=== PATIENT | male | born 1950 | race Caucasian/White ===

== ENCOUNTER 2018-09-18 21:13 | Emergency (ER) | payer MEDICARE, OTHER ==
[2018-09-18] MEDS ORDERED: Sodium Chloride 0.9% 1000 ML 1,000 ML IV STA (21:41)
[2018-09-18] MEDS ORDERED: Nitrostat 0.4 MG (ED) SL ONE ×2 (21:41→21:50)
[2018-09-18] MEDS ORDERED: Sodium Chloride 0.9% 1000 ML 1,000 ML ONE (21:50)
[2018-09-18 22:12] LABS: BASOPHIL % 0.6 % (0.0-0.4); Basophil (Absolute #) 0.04 (0-0.4); Eosinophil % 1.9 % (0.00-5.0); Eosinophil (Absolute #) 0.12 (0-0.5); Granulocyte Absolute (ANC) 4.21 (1.4-6.9); Granulocytes % 66.6 % (36.0-66.0); Hematocrit 45.8 % (42-50); Hemoglobin 15.3 gm/dl (12.5-18.0); Lymphocyte (Absolute #) 1.35 (1.0-4.6); Lymphocytes % 21.3 % (24.0-44.0); Mean Cell Volume 98.3 fl (78-100); Mean Corpuscular Hemoglobin 32.8 pg (26-32); Mean Corpuscular Hgb Concent. 33.4 g/dl (32-36); Mean Platelet Volume 10.2 fl (6-9.5); Monocyte (Absolute #) 0.61 (0.0-1.3); Monocytes % 9.6 % (0.0-12.0); Platelet Count 249 K/mm3 (150-450); Red Blood Count 4.66 M/mm3 (4.1-5.6); White Blood Count 6.3 K/mm3 (4.0-10.5)
[2018-09-18 22:28] LABS: ALBUMIN 4.1 g/dL (3.5-5.0); ALKALINE PHOSPHATASE 93 U/L (38-126); ANION GAP 12.8 MEQ/L (5-15); BLOOD UREA NITROGEN 17 mg/dL (9-20); CHLORIDE 103 mmol/L (98-107); CK-Creatinine Phosphokinase 39 U/L (55-170); Calcium 9.5 mg/dL (8.4-10.2); Carbon Dioxide 30 mmol/L (22-30); Creatinine 1 1.06 mg/dL (0.66-1.25); Glucose 113 mg/dL (74-106); Potassium 4.2 mmol/L (3.5-5.1); SGOT/AST 27 U/L (17-59); SGPT/ALT 24 U/L (0-50); SODIUM 141 mmol/L (137-145); Total Protein 6.8 g/dL (6.3-8.2)
[2018-09-18 22:31] VITALS: O2SAT 99
--- NOTE | 2018-09-19 00:33 | ERPHSYRPT ---
- History of Present Illness Historian: patient Exam Limitations: no limitations Patient Subjective Stated Complaint: patietn states he just isnt feeling right, weakness on left side, off and on and just doesnt feel like something right worried might be his heart Triage Nursing Assessment: pt alert nad [id number], able to ambulate by self, gait is steady, pulses equal bialteral radius, lung sounds clear, patietn face is flushed , skin otherwise warm and dry, no abnormalities seen, no edema noted , no previous cardiac history. Physician History: Pt is a pleasant 67 y/o male. He has no medical history and is just taking MTV daily. Pt states that today "i didn't feel right". He could not describe his feeling and states, that he felt a little weak on the left chest and arm, and decided to come and be seen in the ER. Timing/Duration: today Activities at Onset: none Quality: other (weakness, and tightness) Chest Pain Radiation: arm Severity of Pain-Max: mild Severity of Pain-Current: mild Modifying Factors: Improves With: nothing Aspirin Treatment Today: no aspirin today Allergies/Adverse Reactions: No Known Drug Allergies Allergy (Unverified 10/30/15 09:46) Home Medications: Multivitamin [Multivitamins] 1 each PO DAILY 10/30/15 [History] Hx Tetanus, Diphtheria Vaccination/Date Given: Yes Hx Influenza Vaccination/Date Given: No Hx Pneumococcal Vaccination/Date Given: No Immunizations Up to Date: Yes - Review of Systems Constitutional: Weakness Eyes: No Symptoms Ears, Nose, & Throat: No Symptoms Respiratory: No Cough, No Dyspnea Cardiac: No Chest Pain, No Edema, No Syncope Abdominal/Gastrointestinal: No Abdominal Pain, No Nausea, No Vomiting, No Diarrhea Genitourinary Symptoms: No Dysuria Musculoskeletal: No Back Pain, No Neck Pain Skin: No Rash Neurological: No Dizziness, No Focal Weakness, No Sensory Changes Psychological: No Symptoms Endocrine: No Symptoms All Other Systems: Reviewed and Negative - Past Medical History Pertinent Past Medical History: Yes Neurological History: No Pertinent History ENT History: No Pertinent History Cardiac History: No Pertinent History Respiratory History: No Pertinent History Endocrine Medical History: No Pertinent History Musculoskeletal History: No Pertinent History GI Medical History: Other Psycho-Social History: No Pertinent History Male Reproductive Disorders: No Pertinent History Other Medical History: intermittant abd pain - Past Surgical History Past Surgical History: Yes Neuro Surgical History: No Pertinent History Cardiac: No Pertinent History Respiratory: No Pertinent History Gastrointestinal: Appendectomy, Cholecystectomy, Hernia Repair Genitourinary: No Pertinent History Musculoskeletal: No Pertinent History Male Surgical History: No Pertinent History Other Surgical History: tonsils - Social History Smoking Status: Never smoker Exposure to second hand smoke: No Drug Use: none Patient Lives Alone: Yes - Nursing Vital Signs Nursing Vital Signs: Initial Vital Signs Temperature 98.6 F 09/18/18 21:15 Pulse Rate 82 09/18/18 21:15 Respiratory Rate 24 09/18/18 21:15 Blood Pressure 153/78 09/18/18 21:15 O2 Sat by Pulse Oximetry 99 09/18/18 21:15 Pain Scale Pain Intensity 0 - Physical Exam General Appearance: mild distress Eye Exam: PERRL/EOMI, eyes nml inspection Ears, Nose, Throat Exam: normal ENT inspection, moist mucous membranes Neck Exam: normal inspection, non-tender, supple, full range of motion Respiratory Exam: normal breath sounds, lungs clear, No respiratory distress Cardiovascular Exam: regular rate/rhythm, normal heart sounds Gastrointestinal/Abdomen Exam: soft, No tenderness, No mass Back Exam: normal inspection, No CVA tenderness, No vertebral tenderness Extremity Exam: normal inspection, normal range of motion Neurologic Exam: alert, oriented x 3, cooperative, normal mood/affect, sensation nml, No motor deficits Skin Exam: normal color, warm, dry SpO2: 99 Oxygen Delivery: Room Air - Course EKG Interpreted by Me: RATE, Sinus Rhythm, NORMAL QRS Ordered Tests: Active Orders 24 hr Category Date Time Status Application Integration Specialist STAT Care 09/18/18 21:41 Active EKG-ER Only STAT Care 09/18/18 21:41 Active IV Insertion STAT Care 09/18/18 21:41 Active Oxygen-ED Only NASAL CANNULA 2 lpm Care 09/18/18 21:41 Active Pulse Oximetry (ED) STAT Care 09/18/18 21:41 Active HEAD WITHOUT CONTRAST [CT] Stat Exams 09/18/18 21:39 Taken CBC W DIFF Stat Lab 09/18/18 22:00 Completed CK-Creatinine Phosphokinase Stat Lab 09/18/18 22:00 Completed CMP Stat Lab 09/18/18 22:00 Completed TROPONIN Q3H Lab 09/18/18 22:00 Completed TROPONIN Q3H Lab 09/19/18 00:45 Ordered TROPONIN Q3H Lab 09/19/18 03:45 Ordered TROPONIN Q3H Lab 09/19/18 06:45 Ordered TROPONIN Q3H Lab 09/19/18 09:45 Ordered Urine Triage Profile Stat Lab 09/18/18 21:41 Uncollected Medication Summary Discontinued Medications Generic Name Dose Route Start Last Admin Trade Name Freq PRN Reason Stop Dose Admin Sodium Chloride 1,000 mls @ 999 mls/hr 09/18/18 21:41 09/18/18 21:53 Sodium Chloride 0.9% 1000 Ml IV 09/18/18 22:41 999 mls/hr .Q1H1M STA Administration Sodium Chloride Confirm 09/18/18 21:50 Sodium Chloride 0.9% 1000 Ml Administered 09/18/18 21:51 Dose 1,000 mls @ ud .ROUTE .STK-MED ONE Nitroglycerin 0.4 mg 09/18/18 21:41 09/18/18 21:52 Nitrostat 0.4 Mg (Ed) SL 09/18/18 21:42 0.4 mg STAT ONE Administration Nitroglycerin Confirm 09/18/18 21:50 Nitrostat 0.4 Mg (Ed) Administered 09/18/18 21:51 Dose 0.4 mg SL .STK-MED ONE Lab/Rad Data: Laboratory Result Diagrams 09/18/18 22:00 09/18/18 22:00 Laboratory Results 09/18/18 09/18/18 09/18/18 Range/Units 22:00 22:00 22:00 WBC 6.3 (4.0-10.5) K/mm3 RBC 4.66 (4.1-5.6) M/mm3 Hgb 15.3 (12.5-18.0) gm/dl Hct 45.8 (42-50) % MCV 98.3 (78-100) fl MCH 32.8 H (26-32) pg MCHC 33.4 (32-36) g/dl RDW 13.0 (11.5-14.0) % Plt Count 249 (150-450) K/mm3 MPV 10.2 H (6-9.5) fl Gran % 66.6 H (36.0-66.0) % Eos # (Auto) 0.12 (0-0.5) Absolute Lymphs (auto) 1.35 (1.0-4.6) Absolute Monos (auto) 0.61 (0.0-1.3) Lymphocytes % 21.3 L (24.0-44.0) % Monocytes % 9.6 (0.0-12.0) % Eosinophils % 1.9 (0.00-5.0) % Basophils % 0.6 (0.0-0.4) % Absolute Granulocytes 4.21 (1.4-6.9) Basophils # 0.04 (0-0.4) Sodium 141 (137-145) mmol/L Potassium 4.2 (3.5-5.1) mmol/L Chloride 103 (98-107) mmol/L Carbon Dioxide 30 (22-30) mmol/L Anion Gap 12.8 (5-15) MEQ/L BUN 17 (9-20) mg/dL Creatinine 1.06 (0.66-1.25) mg/dL Estimated GFR > 60.0 ML/MIN Glucose 113 H (74-106) mg/dL Calcium 9.5 (8.4-10.2) mg/dL Total Bilirubin 0.30 (0.2-1.3) mg/dL AST 27 (17-59) U/L ALT 24 (0-50) U/L Alkaline Phosphatase 93 (38-126) U/L Creatine Kinase 39 L (55-170) U/L Troponin I < 0.012 (0.000-0.034) ng/mL Serum Total Protein 6.8 (6.3-8.2) g/dL Albumin 4.1 (3.5-5.0) g/dL - Progress Progress: improved Air Movement: good Progress Note: 09/19/18 00:34 All work up was done, and was negative. Pt is feeling well and denies any discomfort or weakness anymore. Blood Culture(s) Obtained: No Antibiotics given: No Will see patient in: office Counseled pt/family regarding: need for follow-up - Departure Time of Disposition: 00:35 Departure Disposition: Home Clinical Impression: Chest discomfort Condition: Stable Critical Care Time: No Referrals: DRAKE ROMAN [Primary Care Provider] - Additional Instructions: Follow up with PCP in a week, or as needed.
[2018-09-19 00:54] VITALS: BP 121/74; PULSE 75
--- NOTE | 2018-09-19 08:49 | XRAY ---
Indication: Left-sided weakness.. Multiple contiguous axial images obtained through the head without contrast. Comparison: None. Normal appearing brain parenchyma, ventricles, and bony calvarium. Visualized paranasal sinuses and mastoid air cells are clear. Impression: Normal CT head without contrast exam.. Comment: Preliminary interpretation was made by [facility]. No critical discrepancy. CT DI 70.10
== END 2018-09-19 00:55 | disposition home or self-care (01) ==
LOC: ED 21:13
DX: R07.89 Other chest pain (principal); R53.1 Weakness
CPT/HCPCS: 36000; 36415; 70450; 80053; 82550; 84484; 85025; 93005; 93041; 96360; 99284; A9270-GY

== ENCOUNTER 2020-09-23 17:45 | Emergency (ER) | payer MEDICARE, OTHER ==
[2020-09-23] MEDS ORDERED: BABY ASPIRIN 81 MG CHEW PO ONE (18:12)
[2020-09-23] MEDS ORDERED: BABY ASPIRIN 81 MG CHEW ONE (18:23)
[2020-09-23 18:32] LABS: Absolute Neutrophil Ct (ANC) 3.42 (1.4-6.9); BASOPHIL % 0.8 % (0.0-0.4); Basophil (Absolute #) 0.04 (0-0.4); Eosinophil % 0.8 % (0.00-5.0); Eosinophil (Absolute #) 0.04 (0-0.5); Hematocrit 44.2 % (42-50); Hemoglobin 14.5 gm/dl (12.5-18.0); Lymphocytes % 23.2 % (24.0-44.0); Mean Cell Volume 98.9 fl (78-100); Mean Corpuscular Hemoglobin 32.4 pg (26-32); Mean Corpuscular Hgb Concent. 32.8 g/dl (32-36); Mean Platelet Volume 9.9 fl (7.5-11.0); Monocyte (Absolute #) 0.47 (0.0-1.3); Monocytes % 9.1 % (0.0-12.0); Neutrophil % 66.1 % (36.0-66.0); Platelet Count 243 K/mm3 (150-450); Red Blood Count 4.47 M/mm3 (4.1-5.6); Red Cell Distribution Width 12.7 % (11.5-14.0); White Blood Count 5.2 K/mm3 (4.0-10.5)
--- NOTE | 2020-09-23 18:35 | ERPHSYRPT ---
- History of Present Illness Time Seen by Provider: 09/23/20 17:48 Historian: patient Exam Limitations: no limitations Patient Subjective Stated Complaint: cough and chest discomfort while coughing Triage Nursing Assessment: pt to ED c/o cough x couple days and chest discomfort while coughing. rates pain 3/10 at max and 0/10 at rest. pt denies cardiac hx. denies known COVID exposure. pt is afebrile on arrival and no SOB or constant CP reported. heart and lungs clear. Physician History: 70 years old fairly healthy male presented in the ER with 2 days history of off and on dry cough morning every time he coughs at this dull aching pain in the center of the chest which last for few seconds and improved. No chest pain otherwise. Denies any shortness of breath or palpitations. Denies any sick contact. No fever or chills reported. Timing/Duration: day(s) (2), gradual onset, worse Activities at Onset: other Quality: dullness Location: central Chest Pain Radiation: no radiation Severity of Pain-Max: mild Severity of Pain-Current: none Modifying Factors: Worsens With: coughing Associated Symptoms: denies symptoms Prior Chest Pain/Cardiac Workup: no prior chest pain Nitro Today/Relief: no nitro taken today Aspirin Treatment Today: no aspirin today Allergies/Adverse Reactions: oxytetracycline [From Terramycin] Allergy (Unknown, Verified 09/23/20 18:03) pt was a child Home Medications: Multivitamin [Multivitamins] 1 each PO DAILY 10/30/15 [History] Hx Tetanus, Diphtheria Vaccination/Date Given: No Hx Influenza Vaccination/Date Given: No Hx Pneumococcal Vaccination/Date Given: No Immunizations Up to Date: No Travel Risk - International Travel Have you traveled outside of the country in past 3 weeks: No - Coronavirus Screening Are you exhibiting any of the following symptoms?: Yes Symptoms: Cough: New Onset Close contact with a COVID-19 positive Pt in past 14-21 Days: No - Review of Systems Constitutional: No Symptoms Eyes: No Symptoms Ears, Nose, & Throat: No Symptoms Respiratory: Cough Cardiac: Chest Pain Abdominal/Gastrointestinal: No Symptoms Genitourinary Symptoms: No Symptoms Musculoskeletal: No Symptoms Skin: No Symptoms Neurological: No Symptoms Psychological: No Symptoms Endocrine: No Symptoms - Past Medical History Pertinent Past Medical History: Yes Neurological History: No Pertinent History ENT History: No Pertinent History Cardiac History: No Pertinent History Respiratory History: No Pertinent History Endocrine Medical History: No Pertinent History Musculoskeletal History: No Pertinent History GI Medical History: Other Psycho-Social History: No Pertinent History Male Reproductive Disorders: No Pertinent History Other Medical History: intermittent abd pain - Past Surgical History Past Surgical History: Yes Neuro Surgical History: No Pertinent History Cardiac: No Pertinent History Respiratory: No Pertinent History Gastrointestinal: Appendectomy, Cholecystectomy, Hernia Repair Genitourinary: No Pertinent History Musculoskeletal: No Pertinent History Male Surgical History: No Pertinent History Other Surgical History: tonsils - Social History Smoking Status: Never smoker Exposure to second hand smoke: No Drug Use: none Patient Lives Alone: Yes - Nursing Vital Signs Nursing Vital Signs: Initial Vital Signs Temperature 97.0 F 09/23/20 17:55 Pulse Rate 65 09/23/20 17:55 Respiratory Rate 18 09/23/20 17:55 Blood Pressure 161/87 09/23/20 17:55 O2 Sat by Pulse Oximetry 95 09/23/20 17:55 Pain Scale Pain Intensity 0 - Physical Exam General Appearance: no apparent distress, alert Eye Exam: PERRL/EOMI, eyes nml inspection Ears, Nose, Throat Exam: normal ENT inspection, pharynx normal Neck Exam: normal inspection, non-tender, supple, full range of motion Respiratory Exam: normal breath sounds, lungs clear Cardiovascular Exam: regular rate/rhythm, normal heart sounds Gastrointestinal/Abdomen Exam: soft, normal bowel sounds Back Exam: normal inspection, normal range of motion Extremity Exam: normal inspection, normal range of motion Neurologic Exam: alert, oriented x 3, cooperative Skin Exam: normal color SpO2 Interpretation: normal SpO2: 99 O2 Delivery: Room Air - Course EKG Interpreted by Me: RATE (80), Sinus Rhythm, NORMAL AXIS, NORMAL INTERVALS, Q-wave (inferior), Other (Early repolarization) Ordered Tests: Active Orders 24 hr Category Date Time Status Broadcast Operations Engineer STAT Care 09/23/20 18:13 Active EKG-ER Only STAT Care 09/23/20 18:12 Active IV Insertion STAT Care 09/23/20 18:12 Active CHEST 1 VIEW (PORTABLE) Stat Exams 09/23/20 18:13 Taken CBC W DIFF Stat Lab 09/23/20 18:25 Completed CMP Stat Lab 09/23/20 18:25 Completed D-DIMER QUANTITATIVE Stat Lab 09/23/20 18:25 Completed NT PRO BNP Stat Lab 09/23/20 18:25 Completed TROPONIN Q3H Lab 09/23/20 18:25 Completed TROPONIN Q3H Lab 09/23/20 21:26 Received TROPONIN Q3H Lab 09/24/20 00:15 Ordered TROPONIN Q3H Lab 09/24/20 03:15 Ordered TROPONIN Q3H Lab 09/24/20 06:15 Ordered Medication Summary Discontinued Medications Generic Name Dose Route Start Last Admin Trade Name Ayoq PRN Reason Stop Dose Admin Aspirin 324 mg 09/23/20 18:12 09/23/20 18:25 Baby Aspirin 81 Mg Chew PO 09/23/20 18:13 324 mg STAT ONE Administration Aspirin Confirm 09/23/20 18:23 Baby Aspirin 81 Mg Chew Administered 09/23/20 18:24 Dose 324 mg .ROUTE [facility] Lab/Rad Data: Laboratory Result Diagrams 09/23/20 18:25 09/23/20 18:25 Laboratory Results 09/23/20 09/23/20 09/23/20 Range/Units 18:25 18:25 18:25 WBC (4.0-10.5) K/mm3 RBC (4.1-5.6) M/mm3 Hgb (12.5-18.0) gm/dl Hct (42-50) % MCV (78-100) fl MCH (26-32) pg MCHC (32-36) g/dl RDW (11.5-14.0) % Plt Count (150-450) K/mm3 MPV (7.5-11.0) fl Gran % (36.0-66.0) % Eos # (Auto) (0-0.5) Absolute Lymphs (auto) (1.0-4.6) Absolute Monos (auto) (0.0-1.3) Lymphocytes % (24.0-44.0) % Monocytes % (0.0-12.0) % Eosinophils % (0.00-5.0) % Basophils % (0.0-0.4) % Absolute Granulocytes (1.4-6.9) Basophils # (0-0.4) D-Dimer 380 (215-500) ng/mL Sodium 138 (137-145) mmol/L Potassium 4.1 (3.5-5.1) mmol/L Chloride 104 (98-107) mmol/L Carbon Dioxide 29 (22-30) mmol/L Anion Gap 9.4 (5-15) MEQ/L BUN 16 (9-20) mg/dL Creatinine 1.17 (0.66-1.25) mg/dL Estimated GFR > 60.0 ML/MIN Glucose 102 (74-106) mg/dL Calcium 9.3 (8.4-10.2) mg/dL Total Bilirubin 0.20 (0.2-1.3) mg/dL AST 35 (17-59) U/L ALT 29 (0-50) U/L Alkaline Phosphatase 91 (38-126) U/L Troponin I < 0.012 (0.000-0.034) ng/mL NT-Pro-B Natriuret Pep 60.0 (0-900) pg/mL Serum Total Protein 6.2 L (6.3-8.2) g/dL Albumin 3.6 (3.5-5.0) g/dL 09/23/20 Range/Units 18:25 WBC 5.2 (4.0-10.5) K/mm3 RBC 4.47 (4.1-5.6) M/mm3 Hgb 14.5 (12.5-18.0) gm/dl Hct 44.2 (42-50) % MCV 98.9 (78-100) fl MCH 32.4 H (26-32) pg MCHC 32.8 (32-36) g/dl RDW 12.7 (11.5-14.0) % Plt Count 243 (150-450) K/mm3 MPV 9.9 (7.5-11.0) fl Gran % 66.1 H (36.0-66.0) % Eos # (Auto) 0.04 (0-0.5) Absolute Lymphs (auto) 1.20 (1.0-4.6) Absolute Monos (auto) 0.47 (0.0-1.3) Lymphocytes % 23.2 L (24.0-44.0) % Monocytes % 9.1 (0.0-12.0) % Eosinophils % 0.8 (0.00-5.0) % Basophils % 0.8 (0.0-0.4) % Absolute Granulocytes 3.42 (1.4-6.9) Basophils # 0.04 (0-0.4) D-Dimer (215-500) ng/mL Sodium (137-145) mmol/L Potassium (3.5-5.1) mmol/L Chloride (98-107) mmol/L Carbon Dioxide (22-30) mmol/L Anion Gap (5-15) MEQ/L BUN (9-20) mg/dL Creatinine (0.66-1.25) mg/dL Estimated GFR ML/MIN Glucose (74-106) mg/dL Calcium (8.4-10.2) mg/dL Total Bilirubin (0.2-1.3) mg/dL AST (17-59) U/L ALT (0-50) U/L Alkaline Phosphatase (38-126) U/L Troponin I (0.000-0.034) ng/mL NT-Pro-B Natriuret Pep (0-900) pg/mL Serum Total Protein (6.3-8.2) g/dL Albumin (3.5-5.0) g/dL - Progress Progress: improved Air Movement: good Progress Note: 09/23/20 21:57 70 years old fairly healthy male is evaluated in the ER for cough with some chest discomfort. EKG showed sinus rhythm with inferior Q waves without any obvious ST elevations. Patient was given aspirin, on reevaluation he is pain- free and has pain only with coughing. Lungs are bilateral clear to auscultation. Has normal white count, grossly unremarkable chemistries inclu ding troponin x2. Negative D-dimers. I have offered him observation admission but patient wants to go home and would do outpatient follow-up. Patient has cardiac work-up done outpatient couple of years ago at Dr. Mathew office including nuclear stress test which were negative. Patient prefers to go outpatient. He remained asymptomatic throughout stay in the ER. Not in any distress. His pain has some element of reproducibility with cough, could be musculoskeletal/infectious etiology. I would recommend him outpatient follow-up with primary care and cardiology for reevaluation. Discussed signs symptoms of worsening needing return to ER which he seems understanding. Blood Culture(s) Obtained: No Antibiotics given: No Counseled pt/family regarding: lab results, diagnosis, need for follow-up, rad results - Departure Departure Disposition: Extended Care Facility Clinical Impression: Atypical chest pain Condition: Stable Critical Care Time: No Referrals: DRAKE ROMAN [Primary Care Provider] - (1-2 days for reevaluation) LETI MILLAN MD [NON-STAFF PHY W/O PRIVILEGES] - (1-2 days for reevaluation) Instructions: Cough, Adult (DC), Chest Pain (DC) Additional Instructions: Take [id number] cough medication. Take Tylenol as needed. Follow-up with primary care and cardiology for reevaluation. Return to ER for persistent/more frequent chest pain, palpitations or shortness of breath.
[2020-09-23 18:56] LABS: ALBUMIN 3.6 g/dL (3.5-5.0); ALKALINE PHOSPHATASE 91 U/L (38-126); ANION GAP 9.4 MEQ/L (5-15); BLOOD UREA NITROGEN 16 mg/dL (9-20); CHLORIDE 104 mmol/L (98-107); Calcium 9.3 mg/dL (8.4-10.2); Carbon Dioxide 29 mmol/L (22-30); Creatinine 1 1.17 mg/dL (0.66-1.25); EST GLOMERULAR FILTRATION RATE > 60.0 ML/MIN; Glucose 102 mg/dL (74-106); Potassium 4.1 mmol/L (3.5-5.1); SGOT/AST 35 U/L (17-59); SGPT/ALT 29 U/L (0-50); SODIUM 138 mmol/L (137-145); Total Protein 6.2 g/dL (6.3-8.2)
[2020-09-23 21:34] VITALS: BP 127/78; PULSE 58
[2020-09-23 22:03] VITALS: O2SAT 99
--- NOTE | 2020-09-24 08:35 | XRAY ---
Indication: Cough and chest pressure. Comparison: None Portable chest demonstrates minimal left base subsegmental atelectasis/scarring. Remaining heart and lungs normal. Bony thorax intact with mild degenerative changes.
== END 2020-09-23 22:13 | disposition home or self-care (01) ==
LOC: ED 17:45
DX: R07.9 Chest pain, unspecified (principal); R05 Cough
CPT/HCPCS: 36000; 36415; 71045; 80053; 83880; 84484; 85025; 85379; 93005; 93041; 99284; A9270-GY

== ENCOUNTER 2023-09-04 05:52 | Day surgery (SDC) | payer MEDICARE ==
[2023-09-04] MEDS ORDERED: Lactated Ringers 1,000 ML IV ONE (06:17)
[2023-09-04] MEDS ORDERED: Lactated Ringers 1,000 ML IV SCH (07:00)
[2023-09-04] MEDS ORDERED: Xylocaine-Mpf 2% 5 Ml Vial ONE (07:22)
[2023-09-04] MEDS ORDERED: DIPRIVAN 200 MG/20 ML IV ONE (07:22)
[2023-09-04 08:18] VITALS: RESP 16; TEMP 98.3
[2023-09-04 08:35] VITALS: BP 123/72; PULSE 70; O2SAT 100
--- NOTE | 2023-09-04 15:24 | OP ---
SURGERY DATE/TIME: 09/04/2023 0722 PREOPERATIVE DIAGNOSIS: Screening exam. POSTOPERATIVE DIAGNOSIS: Normal colon. PROCEDURE: Colonoscopy. SURGEON: Dr. Contreras. ANESTHESIA: Medications given by anesthesia department. HISTORY: The patient is a -year-old white male patient presenting now for screening colonoscopy. The patient was appraised of the risks of the procedure including the risk of perforation, phlebitis, untoward reaction to medication, bleeding and missed lesions. The patient verbalized his understanding and desired to have the procedure performed. DESCRIPTION OF PROCEDURE: The patient was given the medications by the anesthesia department. He had continuous pulse oximetry, ECG monitoring and intermittent blood pressure monitoring during the examination. He was placed in the left lateral decubitus position. A digital rectal examination was performed and revealed normal anal sphincter tone, no masses and a normal prostate. The flexible Olympus pediatric colonoscope was used to intubate the rectum. A view of the colon was developed sequentially to the cecum. Upon insertion and withdrawal, including a retroflex view in the rectum, no mucosal lesions were encountered. The scope was removed from the patient who tolerated the procedure well and was sent back to OP recovery in good condition. The prep was noted to be fair to good.
== END 2023-09-04 08:35 | disposition home or self-care (01) ==
LOC: SDC 05:52
PROVIDERS: ATTEND Family Medicine
DX: Z12.11 Encounter for screening for malignant neoplasm of colon (principal)
CPT/HCPCS: J2704